=== PATIENT | male | born 1955 | race Caucasian/White ===

== ENCOUNTER 2024-03-27 20:07 | Emergency (ER) | payer SELFPAY ==
[2024-03-27 20:09] VITALS: BP 141/95
--- NOTE | 2024-03-27 20:39 | ED.GENMED ---
History of Present Illness
General
Chief Complaint: Skin Problem
Time Seen by Provider: 03/27/24 20:33
Travel History
Have you had any contact with someone who has COVID-19?: No
Do you have any symptoms of coronavirus? Fever > 100 degrees, chills, cough, shortness of breath, sore throat, loss of taste or smell, muscle aches, or headache?: No
History of Present Illness
History of Present Illness:
68-year-old male presents the emergency department for evaluation of 'poison pippa' to bilateral upper and lower extremities. He is of [place] descent and plans to return to [place] within the next 2 days and is concerned that this is not an endemic
plan to that area. He reports diffuse itching and discharge from the right forearm
Review of Systems
Review of Systems
Allergies reviewed?: Yes
All Other Systems: ROS reviewed and negative except as documented in HPI and ROS
Phy Exam
Physical Exam
Physical Exam:
GEN: Well appearing, NAD, WDWN
HEENT: Oral mucosa moist, no scleral icterus
Cardiac: Regular rate
Lung: No respiratory distress, no tachypnea
MSK: No gross deformity or injuries
Skin: Good color, no pallor or jaundice. Grouped vesicular lesions on an erythematous base in a linear pattern to the both forearms and the right lower extremity, no torso or facial involvement
Neuro: AO x3, moves all extremities freely
Psych: Calm, cooperative
Course
Orders/Labs/Results
Orders:
Orders
03/27/24 20:39
Prednisone [Deltasone] 40 mg PO NOW STA
Vital Signs
Initial and Last Documented VS:
Initial Vital Signs
Temp Pulse Resp BP Pulse Ox
98.3 F 59 20 141/95 99
03/27/24 20:09 03/27/24 20:09 03/27/24 20:09 03/27/24 20:09 03/27/24 20:09
Last Documented Vital Signs
Temp Pulse Resp BP Pulse Ox
98.3 F 59 20 141/95 99
03/27/24 20:09 03/27/24 20:09 03/27/24 20:09 03/27/24 20:09 03/27/24 20:09
MDM/Problems Addressed
MDM/Problems Addressed:
Will treat with corticosteroids due to the numerous locations of outbreak. Patient is a type II diabetic on metformin, advised to monitor blood glucose closely however steroid-induced hyperglycemia typically is a transient phenomenon
*Critical Care Note
Total Time (30-74mins, 75-104mins- exclusive of procedures): Not Applicable
ED Attending Note
-
Portions of this chart may have been created with voice recognition software.� Occasional wrong word or��sound alike� substitutions may have occurred due to the inherent limitations of voice recognition software.
Discharge Plan
Departure
Patient Disposition: Home (Routine Discharge)
Date of Disposition: 03/27/24
Time of Disposition: 20:39
Patient with high blood pressure during this ER visit?: No
Discharge Problem:
Poison pippa dermatitis
Instructions: Poison pippa
Prescriptions:
New
methylprednisolone [Medrol (Darion)] 4 mg tablets,dose pack
See Rx Instructions .ROUTE .COMPLEX Qty: 21 0RF
Rx Instructions:
orally per package directions
Referrals:
UNKNOWN - PT DOES,NOT KNOW [Family Provider] -
Interventions
Interventions:
*Risk Screen - Suicide Last Done: 03/27/24 20:09
*General Assessment Last Done: 03/27/24 20:09
*Neglect/Abuse Screening Last Done: 03/27/24 20:09
*Nursing Disposition Last Done: 03/27/24 20:49
ED-Skin Assessment Last Done: 03/27/24 20:48
Discharge Date and Time
Discharge Date/Time: 03/27/24 20:49
Print Language: LIBYAN
[2024-03-27] MEDS: DELTASONE 40 MG PO (20:43)
== END 2024-03-27 20:49 | disposition home or self-care (01) ==
LOC: EMR 20:07
PROVIDERS: EMERGENCY PHYSICIAN Emergency Medicine
DX: L23.7 Allergic contact dermatitis due to plants, except food (principal); E11.9 Type 2 diabetes mellitus without complications; Z79.84 Long term (current) use of oral hypoglycemic drugs; Z88.6 Allergy status to analgesic agent
CPT/HCPCS: 99283